=== PATIENT | male | born 1995 | race Caucasian/White ===

== ENCOUNTER → 2017-04-18 | Outpatient (CLI) | payer OTHER ==
[~2017-04-18] MED LIST: CONRAY-43 43% 50ML VIAL (Q9960) As Ordered ONE; PROHANCE 279.3MG/ML 5ML VIAL (A9576) As Ordered ONE
--- NOTE | 2017-04-18 11:11 | REP ---
MR ARTHROGRAM RIGHT SHOULDER: TECHNIQUE: Axial T2 fat sat, coronal oblique T1, T2 fat sat, post arthrogram axial T1 fat sat, proton density, coronal oblique T1 fat sat, T2 sat, sagittal oblique T2 fat sat, ABER T1 fat sat. Supraspinatus tendon demonstrates ill-defined high signal diffusely compatible with tendinopathy/tendonitis. No discrete rotator cuff tendon tear is seen. There are mild hypertrophic degenerative changes of the acromioclavicular joint. Acromion is type 1. Biceps tendon is within the bicipital groove. There is no tenosynovitis. There is no Hill-Sachs deformity. Deltoid muscle demonstrates no abnormal signal. The biceps labral complex is intact. There is no evidence of a SLAP tear. There does appear to be a partial tear of the anterior labrum. There appears to be a tear of the inferior labrum. There is stretching and possibly possible tearing of the anterior capsule. Tiny subchondral cysts are seen in the humeral head. There is no bone marrow edema or occult fracture. There is a normal amount of joint fluid. No paralabral cyst is seen. 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 Supraspinatus tendinopathy/tendonitis with no rotator cuff tear. Tiny subchondral cystic changes humeral head. Partial tear anterior labrum. There appears to be a tear of the inferior labrum. Anterior capsule appears stretched and partially torn. Signed by Edwin Calvert MD 04/18/2017 01:01 P
--- NOTE | 2017-04-18 17:11 | REP ---
Procedure: Right shoulder arthrogram The procedure was performed under the direct supervision of Dr. Calvert. History: Right shoulder pain The benefits and risks including but not limited to pain, infection, bleeding and anaphylaxis were explained to the patient and informed consent was obtained. Technique: The right glenohumeral joint space was localized using fluoroscopic guidance. The skin was prepped and draped in a sterile fashion. 1% lidocaine was used as a local anesthetic. Using fluoroscopic guidance a 22 gauge spinal needle was inserted and advanced into the joint. 0.5 ml of Conray 43 was injected to verify placement. 11 ml of a solution containing 20 ml of sterile saline and 0.15 ml of ProHance was injected into the joint. The needle was removed and the patient was taken to MRI for postprocedural imaging. The the patient tolerated the procedure well and there were no immediate complications. 0.0 minutes of fluoro time was utilized for this procedure. Reviewed by JORGE Quinn 04/18/2017 02:33 PSigned by Edwin Calvert MD 04/18/2017 05:02 P
== END ==
LOC: M RADPRO 07:15
PROVIDERS: ATTEND Physician Assistant
DX: M25.511 Pain in right shoulder (principal); M75.81 Other shoulder lesions, right shoulder; M65.811 Other synovitis and tenosynovitis, right shoulder
CPT/HCPCS: 23350; 73223; 77002; A9576; Q9960